=== PATIENT | male | born 1960 | race African-American/Black ===

== ENCOUNTER 2019-02-18 09:29 | Inpatient (IN) | payer SELFPAY ==
[~2019-02-18] VITALS: Ht 182.9 cm; Wt 61.2 kg
[2019-02-18 11:22] LABS: HEMATOCRIT. 33.2 % (42.0-52.0); HEMOGLOBIN. 10.9 g/dL (14.0-18.0); MEAN CORPUSCULAR HEMOGLOBIN 32.6 pg (28.0-32.0); MEAN CORPUSCULAR VOLUME 99.2 fL (80.0-94.0); MEAN PLATELET VOLUME 7.6 fl (7.4-10.4); PLATELET 338 x1000/uL (130-400); RED BLOOD CELL COUNT 3.35 mill/uL (4.7-6.1); RED CELL DISTRIBUTION WIDTH 14.6 % (11.6-14.6)
[2019-02-18 11:23] LABS: CHLORIDE 91 mEq/L (98-107)
[2019-02-18] MEDS ORDERED: SODIUM CHLORIDE 0.9% 1000ML BAG (SEPSIS BOLUS) IV ONE (12:15)
[2019-02-18 12:18] LABS: NUCLEATED RED BLOOD CELLS 1 /100 WBC; PLATELET ESTIMATE NORMAL
[2019-02-18] MEDS ORDERED: VANCOMYCIN 1 G PREMIX 200 ML IV ONE (13:30)
[2019-02-18] MEDS ORDERED: PIPERACILLIN/TAZ 3.375G PREMIX 50 ML IV ONE (13:30)
[2019-02-18 13:59] LABS: BG BASE EXCESS -18.2 mmol/L (-2.0-2.0); BG DEOXYHEMOGLOBIN 1.2 % (0.0-5.0); BG FRACTION INSPIRED OXYGEN 21; BG HCO3 ACT 5.7 mmol/L (22.0-26.0); BG METHEMOGLOBIN 0.3 % (0.0-1.5); BG OXYGEN SATURATION 98.8 % (92.0-98.5); BG OXYHEMOGLOBIN 98.5 % (94.0-97.0); BG PCO2 11.9 mmHg (35.0-45.0); BG PO2 136.3 mmHg (75.0-100.0); BG SAMPLE SITE RIGHT BRACHIAL; BG TOTAL HEMOGLOBIN 10.3 g/dL (12.0-18.0); BG VENT MODE ROOM AIR
[2019-02-18] MEDS ORDERED: SODIUM BICARBONATE 8.4% 1 MEQ/ML 50ML SYR IV ONE (14:15)
[2019-02-18] MEDS ORDERED: IPRATROPIUM/ALBUTEROL 0.5-3(2.5)MG/3ML NEB HHN PRN (14:15)
[2019-02-18 14:26] LABS: CLARITY URINE CLEAR (CLEAR); COLOR URINE YELLOW (YELLOW); KETONES URINE 4+ (NEGATIVE); LEUKOCYTE ESTERASE URINE NEGATIVE (NEGATIVE); NITRITE URINE NEGATIVE (NEGATIVE); OCCULT BLOOD URINE 2+ (NEGATIVE); PROTEIN URINE TRACE (NEGATIVE); SPECIFIC GRAVITY URINE 1.009 (1.005-1.030); UROBILINOGEN URINE 0.2 E.U./dL (0.2-1.0)
[2019-02-18] MEDS ORDERED: HYDROCODONE/ACETAMINOPHEN 5/325MG TABLET PO PRN (14:30)
[2019-02-18] MEDS ORDERED: CLONIDINE 0.1MG TABLET PO PRN (14:30)
[2019-02-18] MEDS ORDERED: PIPERACILLIN/TAZ 3.375G PREMIX 50 ML IV SCH ×2 (14:30→20:15)
[2019-02-18] MEDS ORDERED: IPRATROPIUM/ALBUTEROL 0.5-3(2.5)MG/3ML NEB NEB PRN (14:30)
[2019-02-18] MEDS ORDERED: NA PHOS,M-B/NA PHOS,DI-BA ENEMA 118ML PR PRN (14:30)
[2019-02-18] MEDS ORDERED: LORAZEPAM 2MG/ML CPJ IV PRN (14:30)
[2019-02-18] MEDS ORDERED: GUAIFENESIN 200MG/10ML SUGAR FREE UDC PO PRN (14:30)
[2019-02-18] MEDS ORDERED: ONDANSETRON HCL 4MG/2ML INJ IV PRN (14:30)
[2019-02-18] MEDS ORDERED: MAGNESIUM/ALUMINUM HYDROXIDE/SIMETHICONE 30ML UDC PO PRN (14:30)
[2019-02-18] MEDS ORDERED: ACETAMINOPHEN 325MG TABLET PO PRN (14:30)
[2019-02-18] MEDS ORDERED: MORPHINE SULFATE 2 MG/ML CPJ (NOT FOR IM USE) IV PRN (14:30)
[2019-02-18] MEDS ORDERED: DOCUSATE SODIUM 100MG CAPSULE PO PRN (14:30)
[2019-02-18 15:41] LABS: CHLORIDE 97 mEq/L (98-107)
[2019-02-18] MEDS ORDERED: SODIUM BICARBONATE 100 MEQ in SODIUM CHLORIDE 0.45% 1,000 ML IV ONE (20:15)
[2019-02-18 21:46] VITALS: BP 125/79
[2019-02-18 22:00] VITALS: BP 125/79
[2019-02-18] MEDS ORDERED: SODIUM CHLORIDE 0.45% 1,000 ML IV SCH (22:00)
[2019-02-18] MEDS ORDERED: PNEUMOCOCCAL 23-VAL P-SAC VAC 0.5 ML IM ONE (22:45)
[2019-02-18] MEDS ORDERED: DEXTROSE 50% WATER 50ML SYRINGE IV PRN ×2 (23:45)
[2019-02-18] MEDS: FOLIC ACID 1MG TABLET PO SCH (23:51)
[2019-02-18] MEDS: THIAMINE HCL 100MG TABLET PO SCH (23:52)
[2019-02-18] MEDS: MULTIVITAMINS,THER W-MINERALS TABLET PO SCH (23:52)
[2019-02-18] MEDS: CHLORDIAZEPOXIDE 5 MG CAPSULE PO SCH (23:52)
[2019-02-19] VITALS: BP 134/69
[2019-02-19] MEDS ORDERED: VANCOMYCIN 1250MG in DEXTROSE 5% WATER 250ML IV SCH ×2
[2019-02-19] MEDS: PIPERACILLIN/TAZOBACTAM 3.375 G in DEXT 5% WATER 100 ML IV SCH ×2 (00:22→06:00)
[2019-02-19 02:01] VITALS: BP 125/71
[2019-02-19 03:47] LABS: *BENZODIAZEPINES SCREEN URINE NEGATIVE (NEGATIVE); *COCAINE SCREEN URINE NEGATIVE (NEGATIVE); METHADONE URINE SCREEN NEGATIVE (NEGATIVE); OPIATES URINE SCREEN NEGATIVE (NEGATIVE); PHENCYCLIDINE URINE SCREEN NEGATIVE (NEGATIVE)
[2019-02-19] MEDS ORDERED: INSHUMSS SUBCUT (03:47)
[2019-02-19 03:48] LABS: *AMPHETAMINES SCREEN URINE NEGATIVE (NEGATIVE); *BARBITURATES SCREEN URINE NEGATIVE (NEGATIVE); CANNABINOID URINE SCREEN NEGATIVE (NEGATIVE)
[2019-02-19] MEDS: CHLORDIAZEPOXIDE 5 MG CAPSULE PO SCH ×3 (06:00→23:08)
[2019-02-19 07:07] LABS: BASOPHILS % 0.3 % (0.0-2.0); EOSINOPHILS % 0.1 % (0.0-5.0); HEMATOCRIT. 26.3 % (42.0-52.0); HEMOGLOBIN. 8.9 g/dL (14.0-18.0); LYMPHOCYTES % 8.2 % (20.0-50.0); MEAN CORPUSCULAR HEMOGLOBIN 32.8 pg (28.0-32.0); MEAN CORPUSCULAR VOLUME 96.9 fL (80.0-94.0); MEAN PLATELET VOLUME 7.7 fl (7.4-10.4); MONOCYTES % 9.5 % (2.0-8.0); NEUTROPHILS % 81.9 % (40.0-76.0); PLATELET 260 x1000/uL (130-400); RED BLOOD CELL COUNT 2.71 mill/uL (4.7-6.1); RED CELL DISTRIBUTION WIDTH 14.4 % (11.6-14.6)
[2019-02-19] MEDS: BLOOD SUGAR DIAGNOSTIC STRIP TEST SCH ×4 (07:15→21:00)
[2019-02-19] MEDS: FOLIC ACID 1MG TABLET PO SCH (07:49)
[2019-02-19] MEDS: THIAMINE HCL 100MG TABLET PO SCH (07:49)
[2019-02-19] MEDS: ASPIRIN 81MG EC TABLET PO SCH (07:49)
[2019-02-19] MEDS: MULTIVITAMINS,THER W-MINERALS TABLET PO SCH (07:49)
[2019-02-19] MEDS: INSULIN LISPRO 100 UNITS/ML SUBCUT SCH ×4 (07:50→23:10)
[2019-02-19] MEDS: ENOXAPARIN 40MG/0.4ML SYR SUBCUT SCH (07:50)
[2019-02-19 07:52] LABS: CHLORIDE 96 mEq/L (98-107)
[2019-02-19 08:04] LABS: HDL CHOLESTEROL 46 mg/dL (40-59); T4 FREE 1.08 ng/dL (0.76-1.46)
[2019-02-19 08:07] LABS: LDL CHOLESTEROL 54 mg/dL (5-100)
[2019-02-19] MEDS ORDERED: SODIUM BICARBONATE 100 MEQ in SODIUM CHLORIDE 0.45% 1,000 ML IV SCH (10:00)
[2019-02-19 13:04] LABS: CHLORIDE 95 mEq/L (98-107)
[2019-02-19] MEDS: METRONIDAZOLE 500MG TABLET PO SCH ×2 (14:00→22:00)
[2019-02-19] MEDS ORDERED: VANCOMYCIN 750 MG PREMIX 150 ML IV SCH (14:00)
[2019-02-19 14:03] LABS: HEPATITIS A AB IGM NEGATIVE (NEGATIVE)
[2019-02-19] MEDS ORDERED: PIPERACILLIN/TAZOBACTAM 3.375 G in DEXT 5% WATER 100 ML IV SCH (18:00)
[2019-02-19 20:03] VITALS: BP 135/84
[2019-02-19 22:00] VITALS: BP 127/75
[2019-02-20] VITALS (18 sets, daily range): BP systolic 102–136; BP diastolic 57–96
[2019-02-20] MEDS: METRONIDAZOLE 500MG TABLET PO SCH ×2 (06:44→14:05)
[2019-02-20] MEDS: CHLORDIAZEPOXIDE 5 MG CAPSULE PO SCH ×2 (06:44→14:05)
[2019-02-20 06:48] LABS: CHLORIDE 96 mEq/L (98-107)
[2019-02-20] MEDS: BLOOD SUGAR DIAGNOSTIC STRIP TEST SCH ×2 (06:55→11:50)
[2019-02-20 07:04] LABS: BASOPHILS % 0.3 % (0.0-2.0); EOSINOPHILS % 0.4 % (0.0-5.0); HEMATOCRIT. 26.4 % (42.0-52.0); HEMOGLOBIN. 9.1 g/dL (14.0-18.0); LYMPHOCYTES % 11.4 % (20.0-50.0); MEAN CORPUSCULAR HEMOGLOBIN 33.2 pg (28.0-32.0); MEAN CORPUSCULAR VOLUME 95.9 fL (80.0-94.0); MEAN PLATELET VOLUME 7.7 fl (7.4-10.4); MONOCYTES % 8.7 % (2.0-8.0); NEUTROPHILS % 79.2 % (40.0-76.0); PLATELET 249 x1000/uL (130-400); RED BLOOD CELL COUNT 2.76 mill/uL (4.7-6.1); RED CELL DISTRIBUTION WIDTH 14.4 % (11.6-14.6)
[2019-02-20] MEDS: INSULIN LISPRO 100 UNITS/ML SUBCUT SCH ×2 (07:44→12:33)
[2019-02-20] MEDS ORDERED: POTASSIUM CHLORIDE 20MEQ TABLET SR PO SCH ×2 (08:15→12:30)
[2019-02-20] MEDS: THIAMINE HCL 100MG TABLET PO SCH (08:58)
[2019-02-20] MEDS: ENOXAPARIN 40MG/0.4ML SYR SUBCUT SCH (08:58)
[2019-02-20] MEDS: FOLIC ACID 1MG TABLET PO SCH (08:58)
[2019-02-20] MEDS: ASPIRIN 81MG EC TABLET PO SCH (08:58)
[2019-02-20] MEDS: MULTIVITAMINS,THER W-MINERALS TABLET PO SCH (08:58)
[2019-02-20] MEDS ORDERED: LEVOFLOXACIN 500MG TABLET PO SCH (13:00)
[2019-02-21 05:13] LABS: HIV SCREEN 4G Non Reactive (Non Reactive)
== END 2019-02-20 17:03 | disposition home or self-care (01) | DRG 720 ==
LOC: ER 09:29 → EDBEDREQ 13:47 → CANRESERV 13:50 → ENRESERV 13:50 → 3WST 14:02 → EDBEDREQSVC 14:04 → ENRESERV 16:12 → CANRESERV 16:12 → EDBEDREQSVC 20:53 → ENRESERV 21:03
PROVIDERS: ADMIT Internal Medicine; ATTEND Internal Medicine
DX: A41.9 Sepsis, unspecified organism (principal); J96.00 Acute respiratory failure, unspecified whether with hypoxia or hypercapnia; G82.50 Quadriplegia, unspecified; E87.2 Acidosis; E87.1 Hypo-osmolality and hyponatremia; E11.9 Type 2 diabetes mellitus without complications; D64.9 Anemia, unspecified; E86.0 Dehydration; F12.90 Cannabis use, unspecified, uncomplicated; F17.210 Nicotine dependence, cigarettes, uncomplicated; I10 Essential (primary) hypertension; G90.8 Other disorders of autonomic nervous system; R65.20 Severe sepsis without septic shock; F10.20 Alcohol dependence, uncomplicated; K29.20 Alcoholic gastritis without bleeding; Z79.4 Long term (current) use of insulin; Z79.899 Other long term (current) drug therapy
CPT/HCPCS: 36415; 36600; 71045; 80048; 80061; 80305; 80320; 81003; 82375; 82805; 82962; 83605; 83880; 83930; 84145; 84439; 84443; 84484; 86705; 86709; 86803; 87340; 87389; 93005; 97162; 99291; J1650; J1815; J2543; J3370; J3490; J7030; J7060; G0480